=== PATIENT | male | born 2000 | race Caucasian/White ===

== ENCOUNTER 2023-06-25 11:12 | Emergency (ER) | payer BC, SELFPAY ==
[2023-06-25 11:15] VITALS: BP 131/86
--- NOTE | 2023-06-25 11:50 | EDRN ---
Carlene Dhaliwal PA in to see pt.
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
[2023-06-25 12:26] VITALS: BMI 21.4
[2023-06-25 12:49] VITALS: BP 155/71
[2023-06-25 13:40] LABS: Amphetamines Negative (Negative); Barbiturates Negative (Negative); Benzodiazepines Negative (Negative); Buprenorphine Negative (Negative); Cocaine Negative (Negative); Marijuana Positive (Negative); Methadone Negative (Negative); Methamphetamines Negative (Negative); Opiates Negative (Negative); Phencyclidine Negative (Negative); Tricyclic Antidepressants Negative (Negative)
== END 2023-06-25 13:55 | disposition home or self-care (01) ==
LOC: EMR 11:12
PROVIDERS: Physician Assistant Medical; EMERGENCY PHYSICIAN Emergency Medicine
DX: F10.90 Alcohol use, unspecified, uncomplicated (principal); F12.90 Cannabis use, unspecified, uncomplicated; R03.0 Elevated blood-pressure reading, without diagnosis of hypertension; J45.909 Unspecified asthma, uncomplicated; Z91.018 Allergy to other foods; Z91.010 Allergy to peanuts
CPT/HCPCS: 99283; 80306